=== PATIENT | female | born 1965 | race Caucasian/White ===

== ENCOUNTER 2016-09-18 20:05 | Emergency (ER) | payer MEDICARE ==
[~2016-09-18] VITALS: Ht 154.9 cm; Wt 64.0 kg
[~2016-09-18 20:05] MED LIST: ALBU8I INH; DEPA125T PO; RISP.25 PO
[2016-09-18 20:07] VITALS: BP 124/85; PULSE 118; RESP 16; TEMP 98.3; O2SAT 97
[2016-09-18 20:23] VITALS: PULSE 102
--- NOTE | 2016-09-18 20:23 | PD ---
Physical Exam Time Seen by Provider: 20:21 Narrative 51 y/o female here with pruritic rash L neck, head , tender skin lesion R 3rd finger for a few days. Also c/o cough/sore throat/congestion. Vital signs noted. seen at triage desk. Awaiting bed placement. Data Data Last Documented VS Vital Signs Date Time Temp Pulse Resp B/P Pulse Ox O2 Delivery O2 Flow Rate FiO2 09/18/16 20:07 98.3 118 16 124/85 97 MDM Medical Record Reviewed: Yes Supervised Visit with RICARDO: Yes Spencer Jones Sep 18, 2016 20:22
[2016-09-18] MEDS ORDERED: PERM1KIT TP (22:05)
[2016-09-18] MEDS ORDERED: BACT800T5 PO (22:05)
--- NOTE | 2016-09-18 22:14 | PD ---
HPI Chief Complaint: Skin Problem Time Seen by Provider: 22:05 Travel History International Travel<30 days: No Contact w/Intl Traveler<30days: No Traveled to known affect area: No History of Present Illness HPI 51-year-old white female presents to emergency Department with multiple complaints. She first states that she has had a pruritic rash in her scalp and neck for the past week. She goes on to state also she's had a area of tenderness and swelling to her right middle finger. This is been present for the last few days. She last goes on this also did add on she's been sick for last few days with runny nose, cough, congestion and general malaise. She also mentioned she had a tooth fallout 1-2 weeks ago. She denies any fever chills. No nausea vomiting. No abdominal pain or diarrhea. No dysuria or frequency. PFSH Past Medical History Medical History: Denies Significant Hx Tetanus Vaccination: < 5 Years ?: Not LMP: "LAST MONTH" Past Surgical History Surgical History: No Previous Surgery Other Surgery: Yes (DENTAL SURG) Social History Alcohol Use: Yes (SOCIAL) Tobacco Use: Yes (1/2 PACK X10 YEARS) Substance Use: No Allergies-Medications (Allergen,Severity, Reaction): Coded Allergies: Bee Sting (Verified Allergy, Severe, 09/18/16) Reported Meds & Prescriptions Reported Meds & Active Scripts Active Nix Complete Lice Treatme 1 & 0.25 % (Permethrin & Nit Remover) 1 Kit Kit 1 Unit TP STAT Bactrim DS (Sulfamethoxazole-Trimethoprim) 800-160 Mg Tab 1 Tab PO BID Review of Systems Except as stated in HPI: all other systems reviewed are Neg General / Constitutional: Positive: Fever, Chills HENT: Positive: Sore Throat, Congestion, No: Headaches, Neck Pain Cardiovascular: No: Chest Pain or Discomfort, Palpitations Respiratory: Positive: Cough, No: Shortness of Breath, Wheezing Gastrointestinal: No: Nausea, Vomiting Genitourinary: No: Frequency, Dysuria Musculoskeletal: Positive: Myalgias, Arthralgias, Edema Skin: Positive Rash, Positive Itching, Positive Lesions Physical Exam Narrative GENERAL: Well-developed, well-nourished in no acute distress. Nontoxic appearing. HEAD: Normocephalic, atraumatic. The patient has had lice with multiple nits. EYES: Pupils equal round and reactive. Extraocular motions intact. No scleral icterus. No injection or drainage. ENT: TMs clear without erythema. The external auditory canals clear. Nose: clear . Posterior pharynx is pink and moist. No tonsillar edema or exudate. Uvula midline. Airway patent. Patient has very poor dentition. He looks as if tooth #4 has fallen out spontaneously. NECK: Trachea midline.Supple, nontender, moves head freely. No central bony tenderness or spasm. She has a scaly dermatitis to the base of her neck. CARDIOVASCULAR: Regular rate and rhythm without murmurs, gallops, or rubs. RESPIRATORY: Clear to auscultation. Breath sounds equal bilaterally. No wheezes , rales, or rhonchi. GASTROINTESTINAL: Abdomen soft, non-tender, nondistended. No hepato-splenomegaly , or palpable masses. No guarding. EXTREMITIES: No clubbing, cyanosis, or edema. No joint tenderness, effusion, or edema noted. The right middle finger has a pustule on the base of the proximal phalanx. There is a what appears be a superficial foreign body in it. BACK: Nontender without deformity or crepitance. No flank tenderness. Data Data Last Documented VS Vital Signs Date Time Temp Pulse Resp B/P Pulse Ox O2 Delivery O2 Flow Rate FiO2 09/18/16 20:50 102 16 09/18/16 20:07 98.3 124/85 97 Orders Sulfamet-Trimeth Ds 800-160 Mg (Bactrim (09/18/16 22:15) Permethrin 5% Cream (Elimite 5% Cream) (09/18/16 22:30) MDM Medical Decision Making Medical Screen Exam Complete: Yes Emergency Medical Condition: Yes Medical Record Reviewed: Yes Differential Diagnosis MDM: High Differential diagnoses: Pneumonia, bronchitis, URI, asthma, superficial abscess , foreign body, lice, contact dermatitis Narrative Course A superficial incision and drainage has been performed on the right middle finger. A small piece of foreign bodies removed. Patient will be treated for her lice as well as her upper respiratory tract infection. Procedures Procedure Narrative For moderate removal right middle finger: An 11 blade scalpel is used to unroofed the small pustule. Pus is expressed and a small piece of what appears be a afshin of wood is removed and tissue. The base of the wound appears healthy. I do not see any other retained foreign body. Hand is washed and Neosporin applied along with a bandage. Patient tolerates procedure well. No complications. Diagnosis Primary Impression: foreign body removal right middle finger Additional Impressions: Head lice infestation Upper respiratory tract infection Qualified Code: J06.9 - Viral upper respiratory tract infection Periodontal disease Contact dermatitis Qualified Code: L25.9 - Contact dermatitis, unspecified contact dermatitis type, unspecified trigger Patient Instructions: General Instructions Additional Instructions: Rest. Wash her hand twice daily with soap and water apply Neosporin. Use the next shampoo and comb out all the nits. Reapply the shampoo again in 1 week. Bactrim DS. One percent hydrocortisone cream [id number] 3 times daily to the skin rash. Follow-up with her primary care doctor in 1 week. Follow-up with a dentist in 1 week. Med/Other Pt SpecificInfo: Prescription(s) given Scripts Permethrin & Nit Remover (Nix Complete Lice Treatme 1 & 0.25 %)1 Kit Kit1 Unit TP STAT #1 UNIT Ref 0 Prov:Albin Gilbert MD 09/18/16 Sulfamethoxazole-Trimethoprim (Bactrim DS)800-160 Mg Tab1 Tab PO BID #20 TAB Prov:Albin Gilbert MD 09/18/16 Disposition: 01 DISCHARGE HOME Condition: Stable Aime Vera Sep 18, 2016 22:14
[2016-09-18] MEDS ORDERED: PERMETHRIN 1% LOTION 60 ML BTL TOPICAL ONE ×2 (22:15→23:00)
[2016-09-18] MEDS ORDERED: SULFAMETHOXAZOLE-TRIMETHOPRIM DS 800-160 MG TAB PO ONE (22:15)
[2016-09-18] MEDS ORDERED: PERMETHRIN 5% CREAM 60 GM TOPICAL ONE (22:30)
== END 2016-09-18 23:57 | disposition home or self-care (01) ==
LOC: NEPK 20:05
DX: S60.452A Superficial foreign body of right middle finger, initial encounter (principal); R21 Rash and other nonspecific skin eruption; B85.0 Pediculosis due to Pediculus humanus capitis; J06.9 Acute upper respiratory infection, unspecified; K05.6 Periodontal disease, unspecified; L25.9 Unspecified contact dermatitis, unspecified cause; W45.8XXA Other foreign body or object entering through skin, initial encounter; F17.210 Nicotine dependence, cigarettes, uncomplicated
CPT/HCPCS: 10120

== ENCOUNTER 2016-09-25 07:35 | Emergency (ER) | payer MEDICARE ==
[~2016-09-25] VITALS: Ht 154.9 cm; Wt 63.5 kg
[~2016-09-25 07:35] MED LIST changes: -ALBU8I INH; +BACT800T5 PO; -DEPA125T PO; +PERM1KIT TP; -RISP.25 PO
[2016-09-25 07:38] VITALS: BP 156/96; PULSE 107; TEMP 98.6; O2SAT 98
[2016-09-25 07:51] VITALS: BP 133/84; PULSE 107; RESP 18; O2SAT 96
[2016-09-25 08:27] VITALS: PULSE 88
--- NOTE | 2016-09-25 08:33 | PD ---
HPI Chief Complaint: Medical Clearance Time Seen by Provider: 08:28 Travel History International Travel<30 days: No Contact w/Intl Traveler<30days: No Traveled to known affect area: No History of Present Illness HPI 51-year-old female presents to emergency department for follow-up from her last visit here in the ER. She says she was told to come back in a week for follow- up. She has no medical complaints today. She says she's been taking her Bactrim as prescribed with improvement in her finger that was infected. She was also treated for lice and she says that she's cut her hair off and had improvement in symptoms. She was also seen for upper respiratory infection and she reports improvement in symptoms also. Says she is feeling much better. Denies fever, chills, nausea, vomiting. Denies chest pain, shortness of breath. No other modifying factors or associated signs and symptoms. History Social History Alcohol Use: Yes (SOCIAL) Tobacco Use: Yes (1/2 PACK X10 YEARS) Allergies-Medications (Allergen,Severity, Reaction): Coded Allergies: Bee Sting (Verified Allergy, Severe, 09/25/16) Reported Meds & Prescriptions Reported Meds & Active Scripts Active Nix Complete Lice Treatme 1 & 0.25 % (Permethrin & Nit Remover) 1 Kit Kit 1 Unit TP STAT Bactrim DS (Sulfamethoxazole-Trimethoprim) 800-160 Mg Tab 1 Tab PO BID Review of Systems Except as stated in HPI: all other systems reviewed are Neg Data Data Last Documented VS Vital Signs Date Time Temp Pulse Resp B/P Pulse Ox O2 Delivery O2 Flow Rate FiO2 09/25/16 08:27 88 09/25/16 07:51 18 133/84 96 09/25/16 07:38 98.6 MDM Medical Screen Exam Complete: Yes Emergency Medical Condition: No Differential Diagnosis Medical clearance, follow-up, upper respiratory infection, lice Narrative Course 51-year-old female presents for follow-up after being seen on September 18 with upper respiratory infection, finger infection and lice sensation. She was told to come back for follow-up in one week. I assume she was told to be seen by her primary care provider for follow-up. She has no medical complaints today. She reports improvement in all symptoms. She staking Bactrim as prescribed. Patient has no murmur, medical placement. She will be an EDGO secondary to having Medicare part A & B. Instructed patient to continue Bactrim as prescribed. Instructed patient to follow up with primary care provider. Patient verbalizes understanding and agreement with treatment plan. Patient is medically cleared and stable for discharge. Discussed reasons to return to the emergency department. Instructed patient to follow up with primary care provider. Patient agrees with treatment plan. The patients vital signs are stable and the patient is stable for outpatient follow-up and treatment. Patient discharged home, stable and in no acute distress. Primary Impression: Follow-up exam Referrals: Primary Care Physician Patient Instructions: General Instructions Additional Instructions: Continue Bactrim as prescribed Follow-up with primary care provider in one to 2 days Return to the emergency department immediately with worsening of symptoms Med/Other Pt SpecificInfo: No Change to Meds, No Meds Exist/No RX given Disposition: 01 DISCHARGE HOME Condition: Stable Miriam Early Sep 25, 2016 08:33
--- NOTE | 2016-09-29 17:56 | PD ---
HPI Chief Complaint: Medical Clearance Time Seen by Provider: 08:28 Travel History International Travel<30 days: No Contact w/Intl Traveler<30days: No Traveled to known affect area: No History of Present Illness HPI 51-year-old female presents to emergency department for follow-up from her last visit here in the ER. She says she was told to come back in a week for follow- up. She has no medical complaints today. She says she's been taking her Bactrim as prescribed with improvement in her finger that was infected. She was also treated for lice and she says that she's cut her hair off and had improvement in symptoms. She was also seen for upper respiratory infection and she reports improvement in symptoms also. Says she is feeling much better. Denies fever, chills, nausea, vomiting. Denies chest pain, shortness of breath. No other modifying factors or associated signs and symptoms. PFSH Past Surgical History Other Surgery: Yes (DENTAL SURG) Social History Alcohol Use: Yes (SOCIAL) Tobacco Use: Yes (1/2 PACK X10 YEARS) Substance Use: No Allergies-Medications (Allergen,Severity, Reaction): Coded Allergies: Bee Sting (Verified Allergy, Severe, 09/25/16) Reported Meds & Prescriptions Reported Meds & Active Scripts Active Nix Complete Lice Treatme 1 & 0.25 % (Permethrin & Nit Remover) 1 Kit Kit 1 Unit TP STAT Bactrim DS (Sulfamethoxazole-Trimethoprim) 800-160 Mg Tab 1 Tab PO BID Review of Systems Except as stated in HPI: all other systems reviewed are Neg Physical Exam Narrative GENERAL: Well-nourished, well-developed female patient, in no acute distress; afebrile, nontoxic-appearing SKIN: Warm and dry. HEAD: Atraumatic. Normocephalic. EYES: Pupils equal and round. No scleral icterus. No injection or drainage. ENT: Mucosa pink and moist. Airway patent. NECK: Trachea midline. CARDIOVASCULAR: Regular rate and rhythm. No murmur appreciated. RESPIRATORY: No accessory muscle use. Breath sounds clear and equal bilaterally. No retractions or tachypnea. GASTROINTESTINAL: Abdomen soft, non-tender, nondistended. Bowel sounds active 4 quadrants. MUSCULOSKELETAL: No obvious deformities. No clubbing. No cyanosis. No edema. NEUROLOGICAL: Awake and alert. Oriented 3. No obvious cranial nerve deficits. Motor grossly within normal limits. Normal speech. PSYCHIATRIC: Appropriate mood and affect; insight and judgment normal. Data Data Last Documented VS Vital Signs Date Time Temp Pulse Resp B/P Pulse Ox O2 Delivery O2 Flow Rate FiO2 09/25/16 08:27 88 09/25/16 07:51 18 133/84 96 09/25/16 07:38 98.6 [facility] Medical Decision Making Medical Screen Exam Complete: Yes Emergency Medical Condition: Yes Medical Record Reviewed: Yes Differential Diagnosis Follow-up, medical clearance, URI, lice Narrative Course 51-year-old female presents for follow-up after being seen on September 18 with upper respiratory infection, finger infection and lice sensation. She was told to come back for follow-up in one week. I assume she was told to be seen by her primary care provider for follow-up. She has no medical complaints today. She reports improvement in all symptoms. She staking Bactrim as prescribed. Patient has no murmur, medical placement. She will be an EDGO secondary to having Medicare part A & B. Instructed patient to continue Bactrim as prescribed. Instructed patient to follow up with primary care provider. Patient verbalizes understanding and agreement with treatment plan. Patient is medically cleared and stable for discharge. Discussed reasons to return to the emergency department. Instructed patient to follow up with primary care provider. Patient agrees with treatment plan. The patients vital signs are stable and the patient is stable for outpatient follow-up and treatment. Patient discharged home, stable and in no acute distress. Diagnosis Primary Impression: Follow-up exam Referrals: Primary Care Physician Patient Instructions: General Instructions Departure Forms: Tests/Procedures Additional Instructions: Continue Bactrim as prescribed Follow-up with primary care provider in one to 2 days Return to the emergency department immediately with worsening of symptoms Disposition: 01 DISCHARGE HOME Condition: Stable Miriam Early [facility] Sep 29, 2016 17:56
== END 2016-09-25 09:22 | disposition home or self-care (01) ==
LOC: NEPK 07:35
DX: Z03.89 Encounter for observation for other suspected diseases and conditions ruled out (principal)
CPT/HCPCS: 99281